=== PATIENT | male | born 1970 | race Caucasian/White ===

== ENCOUNTER 2018-04-27 21:24 | Emergency (ER) | payer MEDICAID ==
[2018-04-27] MEDS ORDERED: 0.9 % SODIUM CHLORIDE 1,000 ML BAG IV ONE (21:50)
[2018-04-27 21:55] LABS: HEMATOCRIT 44.9 % (42.0-52.0); HEMOGLOBIN 15.3 gm/dl (14.0-18.0); MEAN CELL VOLUME 99.1 fl (81-97); MEAN CORPUSCULAR HEMOGLOBIN 33.8 pg (27-33); MEAN CORPUSCULAR HGB CONC 34.1 g/dl (32-36); MEAN PLATELET VOLUME 8.8 fl (7.4-10.4); PLATELET COUNT 365 K/uL (130-400); RED BLOOD COUNT 4.53 M/uL (4.40-5.70); RED CELL DISTRIBUTION WIDTH 13.4 % (11.5-14.5); WHITE BLOOD COUNT W/O DIFF 14.5 K/uL (4.2-12.2)
[2018-04-27 21:57] LABS: ARTERIAL BLOOD GAS PCO2 6.1 mmHg (35-48); ARTERIAL BLOOD GAS pH 7.35 (7.35-7.45)
[2018-04-27 21:58] LABS: ARTERIAL BLOOD GAS HCO3 3.3 mmol/L (18-23)
[2018-04-27] MEDS ORDERED: OLANZAPINE 10 MG VIAL IM ONE (22:01)
[2018-04-27 22:18] LABS: ALB/GLOB RATIO 1.8 (1.1-1.8); ALBUMIN 4.4 g/dL (4.0-5.0); ALKALINE PHOSPHATASE 76 U/L (40-129); ALT/SGPT 20 U/L (<41); AST/SGOT 18 U/L (10.0-50.0); BLOOD UREA NITROGEN 15 mg/dL (6-20); CREATININE 1.2 mg/dL (0.7-1.2); EST GLOMERULAR FILTRATION RATE > 60 mL/min; GLUCOSE,RANDOM 153 mg/dL (74-109); TOTAL PROTEIN 6.8 g/dL (6.6-8.7)
[2018-04-27 22:19] LABS: ANISOCYTOSIS 1+; PLATELET ESTIMATE NORMAL (NORMAL)
[2018-04-27 23:20] LABS: AMPHETAMINE SCREEN URINE NOT DETECTED; BARBITURATE SCREEN URINE DETECTED; BENZODIAZEPINE SCREEN URINE NOT DETECTED; COCAINE SCREEN URINE NOT DETECTED; METHADONE SCREEN URINE NOT DETECTED; METHAMPHETAMINE SCREEN NOT DETECTED; OPIATE SCREEN URINE NOT DETECTED; OXYCODONE SCREEN URINE NOT DETECTED; PHENCYCLIDINE SCREEN URINE NOT DETECTED; PROPOXYPHENE SCREEN URINE NOT DETECTED; THC SCREEN URINE NOT DETECTED; TRICYCLIC ANTIDEPRESSANT SCRN NOT DETECTED
--- NOTE | 2018-04-27 23:20 | Emergency Department Record ---
History of Present Illness - General Chief Complaint: Seizures Stated Complaint: EDELMIRA Time Seen by Provider: 04/27/18 21:30 Source: Family Mode of Arrival: EMS Limitations: No limitations - History of Present Illness Initial Comments: The patient is here due to having a seizure episode at home prior to presenting to the ER. He had 2 seizures per his mother. When the 2nd one occurred the patient's mother called 911. They found the patient seizing and did give the patient 5 of Versed IM. When he presented to the ER he was combative and very agitated and moving his extremities equally. The patient did not wake up and is postictal. He did bite his tongue and wet himself. Complaint: Seizure Onset/Timin -: Minutes(s) Description of Episode: Bladder incontinence, Post-event confusion Duration of Episode: 5 -: Minutes(s) Witnessed: Yes - by other Trauma: No Seizure History: Known seizure disorder Place: Home [facility] Precipitating Event: Stress Associated Symptoms: Denies other symptoms Treatments Prior to Arrival: Airway maneuvers, Benzodiazepines - Related Data Allergies Allergy/AdvReac Type Severity Reaction Status Date / Time Cephalosporins Allergy Severe HIVES Verified 10/25/15 16:08 Travel Screening - Travel/Exposure Within Last 30 Days Have you traveled within the last 30 days?: No - Travel/Exposure Within Last Year Have you traveled outside the [place] 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 He will not talk to us. His GCS appears to be 9.) - Head Head exam: Atraumatic, Normocephalic - Eye Eye exam: Normal appearance, PERRL - ENT Throat exam: Tonsillar erythema, Other (The patient was not protecting his airway.) - Neck Neck exam: Normal inspection, Full ROM. negative: Tenderness - Respiratory Respiratory exam: Normal lung sounds bilaterally. negative: Respiratory distress - Cardiovascular Cardiovascular Exam: Regular rate, Normal rhythm, Normal heart sounds - GI/Abdominal GI/Abdominal exam: Soft, Normal bowel sounds. negative: Tenderness - Extremities Extremities exam: Normal inspection, Full ROM, Normal capillary refill. negative: Tenderness - Neurological Neurological exam: Altered, Other (The patient is very combative and moving all 4 ext equally. He does open his eyes but will not follow commands or answer questions.). negative: Alert - Psychiatric Psychiatric exam: Agitated Course Vital Signs 04/27/18 04/27/18 21:37 22:35 Pulse Rate 156 H Pulse Rate [ 128 H [employer] ] Blood Pressure 158/50 Blood Pressure 208/123 [Right Arm] Pulse Ox 97 - Reevaluation(s) Reevaluation #1: We did attempt to sedate the patient with a small dose of Ativan but the patient never woke up and continued to be combative. He then was intubated for airway control due to the fact he was gasping for air at times with a low O2 sat and for controlling him at CT. He also was not protecting his airway and was very acidotic due to the seizures and combativeness. The intubation was successful on the 2nd attempt with the Glidoscope. He never dropped his O2 saturations lower than 80% during the 2 intubations. At one point after the intubation he did become bradycardic for 15-20 seconds but did respond very quickly to Atropine. His BP did not drop below 100/60 during this episode. 04/27/18 23:45 04/28/18 00:05 04/28/18 00:14 Reevaluation #2: I did discuss the case with Dr. Maynard at the [facility] ICU and he did accept the patient in transfer. 04/27/18 23:47 Reevaluation #3: The patient is doing much better at this time. His HR is 110 and he has a stable BP. The patient's O2 saturations are 100% while intubated. He is on a Versed Drip and is very hemydynamically stable at this time. 04/28/18 00:11 Reevaluation #4: Further hx from Mom. The patient was coughing and gasping at times after the first unwitnessed seizure. It appears he may have aspirated during one of the seizures. 04/28/18 00:12 Medical Decision Making - Data Complexity MDM Data: Labs Ordered and/or Reviewed, X-Ray Ordered and/or Reviewed, EKG Ordered and/or Reviewed - Lab Data Result diagrams: 04/27/18 21:40 04/27/18 21:40 Lab Results 04/27/18 04/27/18 04/27/18 Range/Units 21:40 21:40 21:45 WBC 14.5 H (4.2-12.2) K/uL RBC 4.53 (4.40-5.70) M/uL Hgb 15.3 (14.0-18.0) gm/dl Hct 44.9 (42.0-52.0) % MCV 99.1 H (81-97) fl MCH 33.8 H (27-33) pg MCHC 34.1 (32-36) g/dl RDW 13.4 (11.5-14.5) % Plt Count 365 (130-400) K/uL MPV 8.8 (7.4-10.4) fl Neutrophils % 78.0 (47-80) % Band Neutrophils % 3.0 (0-5) % Eosinophils % Not Reportable Basophils % Not Reportable Lymphocytes 16.0 (16-45) % Monocytes 3.0 (0-9) % Platelet Estimate Normal (NORMAL) Anisocytosis 1+ Puncture Site Not Reportable pCO2 6.1 L* (35-48) mmHg pO2 144.0 H (83-108) mmHg HCO3 3.3 L (18-23) mmol/L Oxyhemoglobin Not Reportable ABG pH 7.35 (7.35-7.45) ABG O2 Saturation Not Reportable ABG Base Excess -23.0 L (-2 - 3) mmol/L Deepak Test Not Reportable Carboxyhemoglobin Not Reportable Methemoglobin Not Reportable Actual Respiration Rate Not Reportable FiO2 Not Reportable Sodium 140 (136-145) mmol/L Potassium 3.7 (3.4-4.5) mmol/L Chloride 99 (98-107) mmol/L Carbon Dioxide 14.0 L (22-29) mmol/L Anion Gap 27.0 H (7-16) BUN 15 (6-20) mg/dL Creatinine 1.2 (0.7-1.2) mg/dL Estimated GFR > 60 mL/min Random Glucose 153 H (74-109) mg/dL Lactic Acid (0.5-2.2) mmol/L Calcium 8.6 (8.6-10.0) mg/dL Total Bilirubin 0.20 (0.2-1.0) mg/dL AST 18 (10.0-50.0) U/L ALT 20 (<41) U/L Alkaline Phosphatase 76 (40-129) U/L Total Protein 6.8 (6.6-8.7) g/dL Albumin 4.4 (4.0-5.0) g/dL Globulin 2.4 (1.4-4.8) gm/dL Albumin/Globulin Ratio 1.8 (1.1-1.8) Phenytoin 9.0 L (10.0-20.0) ug/mL 04/27/18 Range/Units 21:50 WBC (4.2-12.2) K/uL RBC (4.40-5.70) M/uL Hgb (14.0-18.0) gm/dl Hct (42.0-52.0) % MCV (81-97) fl MCH (27-33) pg MCHC (32-36) g/dl RDW (11.5-14.5) % Plt Count (130-400) K/uL MPV (7.4-10.4) fl Neutrophils % (47-80) % Band Neutrophils % (0-5) % Eosinophils % Basophils % Lymphocytes (16-45) % Monocytes (0-9) % Platelet Estimate (NORMAL) Anisocytosis Puncture Site pCO2 (35-48) mmHg pO2 (83-108) mmHg HCO3 (18-23) mmol/L Oxyhemoglobin ABG pH (7.35-7.45) ABG O2 Saturation ABG Base Excess (-2 - 3) mmol/L Deepak Test Carboxyhemoglobin Methemoglobin Actual Respiration Rate FiO2 Sodium (136-145) mmol/L Potassium (3.4-4.5) mmol/L Chloride (98-107) mmol/L Carbon Dioxide (22-29) mmol/L Anion Gap (7-16) BUN (6-20) mg/dL Creatinine (0.7-1.2) mg/dL Estimated GFR mL/min Random Glucose (74-109) mg/dL Lactic Acid 9.2 H (0.5-2.2) mmol/L Calcium (8.6-10.0) mg/dL Total Bilirubin (0.2-1.0) mg/dL AST (10.0-50.0) U/L ALT (<41) U/L Alkaline Phosphatase (40-129) U/L Total Protein (6.6-8.7) g/dL Albumin (4.0-5.0) g/dL Globulin (1.4-4.8) gm/dL Albumin/Globulin Ratio (1.1-1.8) Phenytoin (10.0-20.0) ug/mL - EKG Data -: EKG Interpreted by Me (Sinus tach at 135. Nonspecific ST changes.) - Radiology Data Radiology results: Report reviewed (CXR; Good tube placement with bilateral opacities. Head CT: Neg Cervical CT: Neg for acute changes. Poss abnormal T1 but probably congenital.) Critical Care Time Critical Care Time: Yes Total Critical Care Time: 90 Disposition Forms: Patient Portal Access Quality - Quality Measures Quality Measures: N/A - Blood Pressure Screening View Details: Yes Does Patient Have Any of the Following: No Blood Pressure Classification: Hypertensive Reading Systolic Measurement: 158 Diastolic Measurement: 50 Screening for High Blood Pressure: < First Hypertensive BP, F/U Documented > [ G8950] First Hypertensive Follow-up Interventions: Referral to alternative/primary care provider.
[2018-04-27] MEDS ORDERED: MIDAZOLAM HCL 50 MG in 0.9 % SODIUM CHLORIDE 100ML 100 ML IVPB SCH (23:45)
[2018-04-27] MEDS ORDERED: CLINDAMYCIN 600MG/50ML PREMIX 600 MG/50 ML BAG IVPB ONE (23:55)
[2018-04-28] MEDS ORDERED: FENTANYL PF 100MCG/2ML VIAL IVP ONE (00:02)
[2018-04-28 00:17] LABS: ARTERIAL BLOOD GAS PCO2 45.3 mmHg (35-48); ARTERIAL BLOOD GAS pH 7.27 (7.35-7.45)
[2018-04-28 00:18] LABS: ARTERIAL BLD GAS O2 SATURATION 98.5 % (95-98); ARTERIAL BLOOD GAS BASE EXCESS -5.6 mmol/L (-2 - 3); ARTERIAL BLOOD GAS HCO3 20.1 mmol/L (18-23); CARBOXYHEMOGLOBIN 2.6 % (0-1.5); METHEMOGLOBIN 0.5 % (0.0-1.5); O2 HEMOGLOBIN 95.5 % vol (94-99)
[2018-04-28 00:19] LABS: ALLEN TEST NOT DONE
--- NOTE | 2018-04-28 03:51 | Emergency Department Record ---
History of Present Illness - General Chief Complaint: Seizures Stated Complaint: EDELMIRA Time Seen by Provider: 04/27/18 21:30 Source: Family Mode of Arrival: EMS Limitations: Altered mental status (The patient is moving all 4 ext equally and does open his eyes to voice at times. He will not talk to us. His GCS appears to be 9.) - History of Present Illness Onset/Timin -: Minutes(s) Description of Episode: Bladder incontinence, Post-event confusion Duration of Episode: 5 -: Minutes(s) Witnessed: Yes - by other Trauma: No Seizure History: Known seizure disorder Place: [facility] Precipitating Event: Stress Associated Symptoms: Denies other symptoms Treatments Prior to Arrival: Airway maneuvers, Benzodiazepines - Related Data Allergies Allergy/AdvReac Type Severity Reaction Status Date / Time Cephalosporins Allergy Severe HIVES Verified 10/25/15 16:08 Travel Screening - Travel/Exposure Within Last 30 Days Have you traveled within the last 30 days?: No - Travel/Exposure Within Last Year Have you traveled outside the [place] 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 He will not talk to us. His GCS appears to be 9.) Course Vital Signs 04/27/18 04/27/18 04/27/18 21:37 22:24 22:30 Temperature Pulse Rate 156 H Pulse Rate [ [employer] ] Respiratory Rate Blood Pressure 158/50 Blood Pressure 120/61 121/73 [Right Arm] Pulse Ox 97 04/27/18 04/27/18 04/27/18 22:35 22:40 22:53 Temperature Pulse Rate Pulse Rate [ 128 H 21 L [employer] ] Respiratory Rate Blood Pressure Blood Pressure 208/123 163/91 141/100 [Right Arm] Pulse Ox 04/27/18 04/27/18 04/27/18 22:59 23:09 23:27 Temperature Pulse Rate Pulse Rate [ 144 H 127 H [employer] ] Respiratory 14 Rate Blood Pressure Blood Pressure 163/90 156/92 [Right Arm] Pulse Ox 04/27/18 04/27/18 04/28/18 23:41 23:47 00:00 Temperature 99.4 F Pulse Rate Pulse Rate [ 115 H 135 H [employer] ] Respiratory 14 14 Rate Blood Pressure Blood Pressure 159/90 180/115 [Right Arm] Pulse Ox 04/28/18 04/28/18 04/28/18 00:12 00:15 00:30 Temperature Pulse Rate Pulse Rate [ 111 H 110 H [employer] ] Respiratory 14 14 14 Rate Blood Pressure Blood Pressure 167/92 135/89 [Right Arm] Pulse Ox 100 04/28/18 00:34 Temperature Pulse Rate Pulse Rate [ [employer] ] Respiratory 14 Rate Blood Pressure Blood Pressure [Right Arm] Pulse Ox Procedures - Intubation Date: 04/27/18 Time Out Performed: Yes Sedative: Versed Paralytic: Rocuronium Laryngoscope: Fiberoptic video scope Size: 4 ET Tube Size: 8 ET Tube Uncuffed: No Tube Secured Location: Teeth Tube Placement Confirmation: Confirmation by capnometry, Equal breath sounds bilaterally, No breath sounds over epigastrum, Visualized tube passing through cords Patient Tolerated Procedure: Good Intubation Complications: None Medical Decision Making - Lab Data Result diagrams: 04/27/18 21:40 04/27/18 21:40 Lab Results 04/27/18 04/27/18 04/27/18 Range/Units 21:40 21:40 21:45 WBC 14.5 H (4.2-12.2) K/uL RBC 4.53 (4.40-5.70) M/uL Hgb 15.3 (14.0-18.0) gm/dl Hct 44.9 (42.0-52.0) % MCV 99.1 H (81-97) fl MCH 33.8 H (27-33) pg MCHC 34.1 (32-36) g/dl RDW 13.4 (11.5-14.5) % Plt Count 365 (130-400) K/uL MPV 8.8 (7.4-10.4) fl Neutrophils % 78.0 (47-80) % Band Neutrophils % 3.0 (0-5) % Eosinophils % Not Reportable Basophils % Not Reportable Lymphocytes 16.0 (16-45) % Monocytes 3.0 (0-9) % Platelet Estimate Normal (NORMAL) Anisocytosis 1+ Puncture Site Not Reportable pCO2 6.1 L* (35-48) mmHg pO2 144.0 H (83-108) mmHg HCO3 3.3 L (18-23) mmol/L Oxyhemoglobin Not Reportable ABG pH 7.35 (7.35-7.45) ABG O2 Saturation Not Reportable ABG Base Excess -23.0 L (-2 - 3) mmol/L Deepak Test Not Reportable Carboxyhemoglobin Not Reportable Methemoglobin Not Reportable Actual Respiration Rate Not Reportable FiO2 Not Reportable Sodium 140 (136-145) mmol/L Potassium 3.7 (3.4-4.5) mmol/L Chloride 99 (98-107) mmol/L Carbon Dioxide 14.0 L (22-29) mmol/L Anion Gap 27.0 H (7-16) BUN 15 (6-20) mg/dL Creatinine 1.2 (0.7-1.2) mg/dL Estimated GFR > 60 mL/min Random Glucose 153 H (74-109) mg/dL Lactic Acid (0.5-2.2) mmol/L Calcium 8.6 (8.6-10.0) mg/dL Total Bilirubin 0.20 (0.2-1.0) mg/dL AST 18 (10.0-50.0) U/L ALT 20 (<41) U/L Alkaline Phosphatase 76 (40-129) U/L Total Protein 6.8 (6.6-8.7) g/dL Albumin 4.4 (4.0-5.0) g/dL Globulin 2.4 (1.4-4.8) gm/dL Albumin/Globulin Ratio 1.8 (1.1-1.8) Urine Opiates Screen Ur Oxycodone Screen Urine Methadone Screen Ur Propoxyphene Screen Ur Barbituates Screen Phenytoin 9.0 L (10.0-20.0) ug/mL Ur Tricyclics Screen Ur Phencyclidine Scrn Ur Amphetamine Screen U Methamphetamines Scrn U Benzodiazepines Scrn Urine Cocaine Screen Urine Cannabis Screen 04/27/18 04/27/18 04/28/18 Range/Units 21:50 Unknown 00:10 WBC (4.2-12.2) K/uL RBC (4.40-5.70) M/uL Hgb (14.0-18.0) gm/dl Hct (42.0-52.0) % MCV (81-97) fl MCH (27-33) pg MCHC (32-36) g/dl RDW (11.5-14.5) % Plt Count (130-400) K/uL MPV (7.4-10.4) fl Neutrophils % (47-80) % Band Neutrophils % (0-5) % Eosinophils % Basophils % Lymphocytes (16-45) % Monocytes (0-9) % Platelet Estimate (NORMAL) Anisocytosis Puncture Site Right wrist pCO2 45.3 (35-48) mmHg pO2 115.0 H (83-108) mmHg HCO3 20.1 (18-23) mmol/L Oxyhemoglobin 95.5 ABG pH 7.27 L (7.35-7.45) ABG O2 Saturation 98.5 H ABG Base Excess -5.6 L (-2 - 3) mmol/L Deepak Test Not done Carboxyhemoglobin 2.6 H Methemoglobin 0.5 Actual Respiration Rate 14.0 FiO2 60.0 Sodium (136-145) mmol/L Potassium (3.4-4.5) mmol/L Chloride (98-107) mmol/L Carbon Dioxide (22-29) mmol/L Anion Gap (7-16) BUN (6-20) mg/dL Creatinine (0.7-1.2) mg/dL Estimated GFR mL/min Random Glucose (74-109) mg/dL Lactic Acid 9.2 H (0.5-2.2) mmol/L Calcium (8.6-10.0) mg/dL Total Bilirubin (0.2-1.0) mg/dL AST (10.0-50.0) U/L ALT (<41) U/L Alkaline Phosphatase (40-129) U/L Total Protein (6.6-8.7) g/dL Albumin (4.0-5.0) g/dL Globulin (1.4-4.8) gm/dL Albumin/Globulin Ratio (1.1-1.8) Urine Opiates Screen Not detected Ur Oxycodone Screen Not detected Urine Methadone Screen Not detected Ur Propoxyphene Screen Not detected Ur Barbituates Screen Detected Phenytoin (10.0-20.0) ug/mL Ur Tricyclics Screen Not detected Ur Phencyclidine Scrn Not detected Ur Amphetamine Screen Not detected U Methamphetamines Scrn Not detected U Benzodiazepines Scrn Not detected Urine Cocaine Screen Not detected Urine Cannabis Screen Not detected Disposition Forms: Patient Portal Access Quality - Quality Measures Quality Measures: N/A - Blood Pressure Screening View Details: Yes Does Patient Have Any of the Following: No Blood Pressure Classification: Hypertensive Reading Systolic Measurement: 158 Diastolic Measurement: 50 Screening for High Blood Pressure: < First Hypertensive BP, F/U Documented > [ G8950] First Hypertensive Follow-up Interventions: Referral to alternative/primary care provider.
--- NOTE | 2018-04-29 13:24 | RADIOLOGY REPORT ---
EXAM: CHEST 1 VIEW HISTORY: PATIENT HAS TUBE PLACEMENT. TECHNIQUE: Three AP views of the chest are provided along with a comparison study dated 10/25/2015. FINDINGS: The cardiomediastinal silhouette is within normal limits for size and contour. Shaye appear unremarkable. Multiple patchy alveolar infiltrates are identified within the bilateral lung caldwell suggesting pneumonia. No pneumothorax is noted. Final AP portable view demonstrates an endotracheal tube. The distal tip of the endotracheal tube is identified approximately 3.2 cm above the level of the kristin. IMPRESSION: 1. MULTIFOCAL PATCHY INFILTRATES ARE IDENTIFIED SUGGESTING PNEUMONIA. 2. AN ENDOTRACHEAL TUBE TIP IS NOTED, DESCRIBED. 3. FOLLOW-UP PA AND LATERAL VIEW OF THE CHEST CAN BE OBTAINED UNTIL RESOLUTION OF FINDINGS. JOB NUMBER: [id number] MTDD
--- NOTE | 2018-04-29 13:29 | CT SCAN REPORT ---
EXAM: CT SCAN HEAD WO CONTRAST HISTORY: PATIENT HAS MULTIPLE SEIZURES. TECHNIQUE: Serial axial CT scan of the head was performed at 2.5 mm intervals from the base of the skull to the apex without the use of intravenous contrast. Sagittal and coronal reconstructions are provided. COMPARISON: Comparison CT scan of the head dated 05/05/2014 is provided. FINDINGS: The ventricles, cisterns, sulci appear within normal limits for size , shape, and attenuation. There is no mass or mass effect. The delgadillo and white differentiation is within normal limits. There is no CT evidence of intra or extraaxial fluid collection to suggest bleeding. Bone windows demonstrate no CT evidence of a fracture or dislocation of the skull. IMPRESSION: STABLE CT APPEARANCE OF THE BRAIN WITH RESPECT TO THE PRIOR EXAMINATION. JOB NUMBER: [id number] MTDD
--- NOTE | 2018-04-29 13:37 | CT SCAN REPORT ---
EXAM: CT SCAN CERVICAL SPINE WO CONTRAST HISTORY: PATIENT HAS A HISTORY OF MULTIPLE SEIZURES. TECHNIQUE: Serial axial CT scan of the cervical spine was performed at 2.5 mm intervals from the base of the skull to the thoracic inlet without the use of intravenous contrast. Sagittal and coronal reconstructions are provided. COMPARISON: No comparison CT's are available. FINDINGS: The vertebral body height, contour, AP alignment of the cervical spine is within normal limits. There is moderate disc space height loss with anterior vertebral body osteophyte formation and endplate sclerosis at the C6- C7 disc space level. There is significant central compression deformity of the C7 vertebral body. Age and etiology is uncertain. If there is further clinical concern, then an MRI of the cervical spine can be obtained for further evaluation. There is no CT evidence of a fracture or dislocation of the cervical spine. The prevertebral soft tissue is unremarkable. The parapharyngeal fat is unremarkable. The bilateral visualized parotid glands, submandibular glands, thyroid gland are unremarkable. No cervical lymphadenopathy is noted. An endotracheal tube is identified following the course of the trachea. Lung windows demonstrate nodular infiltrates within the bilateral upper lobes. These findings may represent pneumonia. Follow-up PA and lateral view of the chest can be obtained until resolution of findings. IMPRESSION: 1. DEGENERATIVE DISC DISEASE OF THE CERVICAL SPINE IS NOTED WITHOUT CT EVIDENCE OF AN ACUTE FRACTURE OR DISLOCATION OF THE CERVICAL SPINE. 2. SIGNIFICANT ANTERIOR AND CENTRAL COMPRESSION DEFORMITY OF THE T1 VERTEBRAL BODY. AGE AND ETIOLOGY IS UNCERTAIN. IF THERE IS FURTHER CLINICAL CONCERN, THEN AN MRI OF THE CERVICAL SPINE CAN BE OBTAINED FOR FURTHER EVALUATION. 3. NODULAR INFILTRATES ARE NOTED WITHIN THE BILATERAL UPPER LOBES, WHICH MAY BE THE RESULT OF A PNEUMONIA. FOLLOW-UP PA AND LATERAL VIEW OF THE CHEST CAN BE OBTAINED UNTIL RESOLUTION OF FINDINGS. JOB NUMBER: [id number] [facility]
--- NOTE | 2018-04-30 07:08 | Emergency Department Record ---
History of Present Illness - General Chief Complaint: Seizures Stated Complaint: EDELMIRA Time Seen by Provider: 04/27/18 21:30 Source: Family Mode of Arrival: EMS Limitations: Altered mental status (The patient is moving all 4 ext equally and does open his eyes to voice at times. He will not talk to us. His GCS appears to be 9.) - History of Present Illness Onset/Timin -: Minutes(s) Description of Episode: Bladder incontinence, Post-event confusion Duration of Episode: 5 -: Minutes(s) Witnessed: Yes - by other Trauma: No Seizure History: Known seizure disorder Place: Home Possible Precipitating Event: Stress Associated Symptoms: Denies other symptoms Treatments Prior to Arrival: Airway maneuvers, Benzodiazepines - Related Data Allergies Allergy/AdvReac Type Severity Reaction Status Date / Time Cephalosporins Allergy Severe HIVES Verified 10/25/15 16:08 Travel Screening - Travel/Exposure Within Last 30 Days Have you traveled within the last 30 days?: No - Travel/Exposure Within Last Year Have you traveled outside the [place] 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 He will not talk to us. His GCS appears to be 9.) Course Vital Signs 04/27/18 04/27/18 04/27/18 21:37 22:24 22:30 Temperature Pulse Rate 156 H Pulse Rate [ Brattice Builder ] Respiratory Rate Blood Pressure 158/50 Blood Pressure 120/61 121/73 [Right Arm] Pulse Ox 97 04/27/18 04/27/18 04/27/18 22:35 22:40 22:53 Temperature Pulse Rate Pulse Rate [ 128 H 21 L Brattice Builder ] Respiratory Rate Blood Pressure Blood Pressure 208/123 163/91 141/100 [Right Arm] Pulse Ox 04/27/18 04/27/18 04/27/18 22:59 23:09 23:27 Temperature Pulse Rate Pulse Rate [ 144 H 127 H Brattice Builder ] Respiratory 14 Rate Blood Pressure Blood Pressure 163/90 156/92 [Right Arm] Pulse Ox 04/27/18 04/27/18 04/28/18 23:41 23:47 00:00 Temperature 99.4 F Pulse Rate Pulse Rate [ 115 H 135 H Brattice Builder ] Respiratory 14 14 Rate Blood Pressure Blood Pressure 159/90 180/115 [Right Arm] Pulse Ox 04/28/18 04/28/18 04/28/18 00:12 00:15 00:30 Temperature Pulse Rate Pulse Rate [ 111 H 110 H Brattice Builder ] Respiratory 14 14 14 Rate Blood Pressure Blood Pressure 167/92 135/89 [Right Arm] Pulse Ox 100 04/28/18 00:34 Temperature Pulse Rate Pulse Rate [ Brattice Builder ] Respiratory 14 Rate Blood Pressure Blood Pressure [Right Arm] Pulse Ox Medical Decision Making - Lab Data Result diagrams: 04/27/18 21:40 04/27/18 21:40 Lab Results 04/27/18 04/27/18 04/27/18 Range/Units 21:40 21:40 21:45 WBC 14.5 H (4.2-12.2) K/uL RBC 4.53 (4.40-5.70) M/uL Hgb 15.3 (14.0-18.0) gm/dl Hct 44.9 (42.0-52.0) % MCV 99.1 H (81-97) fl MCH 33.8 H (27-33) pg MCHC 34.1 (32-36) g/dl RDW 13.4 (11.5-14.5) % Plt Count 365 (130-400) K/uL MPV 8.8 (7.4-10.4) fl Neutrophils % 78.0 (47-80) % Band Neutrophils % 3.0 (0-5) % Eosinophils % Not Reportable Basophils % Not Reportable Lymphocytes 16.0 (16-45) % Monocytes 3.0 (0-9) % Platelet Estimate Normal (NORMAL) Anisocytosis 1+ Puncture Site Not Reportable pCO2 6.1 L* (35-48) mmHg pO2 144.0 H (83-108) mmHg HCO3 3.3 L (18-23) mmol/L Oxyhemoglobin Not Reportable ABG pH 7.35 (7.35-7.45) ABG O2 Saturation Not Reportable ABG Base Excess -23.0 L (-2 - 3) mmol/L Deepak Test Not Reportable Carboxyhemoglobin Not Reportable Methemoglobin Not Reportable Actual Respiration Rate Not Reportable FiO2 Not Reportable Sodium 140 (136-145) mmol/L Potassium 3.7 (3.4-4.5) mmol/L Chloride 99 (98-107) mmol/L Carbon Dioxide 14.0 L (22-29) mmol/L Anion Gap 27.0 H (7-16) BUN 15 (6-20) mg/dL Creatinine 1.2 (0.7-1.2) mg/dL Estimated GFR > 60 mL/min Random Glucose 153 H (74-109) mg/dL Lactic Acid (0.5-2.2) mmol/L Calcium 8.6 (8.6-10.0) mg/dL Total Bilirubin 0.20 (0.2-1.0) mg/dL AST 18 (10.0-50.0) U/L ALT 20 (<41) U/L Alkaline Phosphatase 76 (40-129) U/L Total Protein 6.8 (6.6-8.7) g/dL Albumin 4.4 (4.0-5.0) g/dL Globulin 2.4 (1.4-4.8) gm/dL Albumin/Globulin Ratio 1.8 (1.1-1.8) Urine Opiates Screen Ur Oxycodone Screen Urine Methadone Screen Ur Propoxyphene Screen Ur Barbituates Screen Phenytoin 9.0 L (10.0-20.0) ug/mL Ur Tricyclics Screen Ur Phencyclidine Scrn Ur Amphetamine Screen U Methamphetamines Scrn U Benzodiazepines Scrn Urine Cocaine Screen Urine Cannabis Screen 04/27/18 04/27/18 04/28/18 Range/Units 21:50 Unknown 00:10 WBC (4.2-12.2) K/uL RBC (4.40-5.70) M/uL Hgb (14.0-18.0) gm/dl Hct (42.0-52.0) % MCV (81-97) fl MCH (27-33) pg MCHC (32-36) g/dl RDW (11.5-14.5) % Plt Count (130-400) K/uL MPV (7.4-10.4) fl Neutrophils % (47-80) % Band Neutrophils % (0-5) % Eosinophils % Basophils % Lymphocytes (16-45) % Monocytes (0-9) % Platelet Estimate (NORMAL) Anisocytosis Puncture Site Right wrist pCO2 45.3 (35-48) mmHg pO2 115.0 H (83-108) mmHg HCO3 20.1 (18-23) mmol/L Oxyhemoglobin 95.5 ABG pH 7.27 L (7.35-7.45) ABG O2 Saturation 98.5 H ABG Base Excess -5.6 L (-2 - 3) mmol/L Deepak Test Not done Carboxyhemoglobin 2.6 H Methemoglobin 0.5 Actual Respiration Rate 14.0 FiO2 60.0 Sodium (136-145) mmol/L Potassium (3.4-4.5) mmol/L Chloride (98-107) mmol/L Carbon Dioxide (22-29) mmol/L Anion Gap (7-16) BUN (6-20) mg/dL Creatinine (0.7-1.2) mg/dL Estimated GFR mL/min Random Glucose (74-109) mg/dL Lactic Acid 9.2 H (0.5-2.2) mmol/L Calcium (8.6-10.0) mg/dL Total Bilirubin (0.2-1.0) mg/dL AST (10.0-50.0) U/L ALT (<41) U/L Alkaline Phosphatase (40-129) U/L Total Protein (6.6-8.7) g/dL Albumin (4.0-5.0) g/dL Globulin (1.4-4.8) gm/dL Albumin/Globulin Ratio (1.1-1.8) Urine Opiates Screen Not detected Ur Oxycodone Screen Not detected Urine Methadone Screen Not detected Ur Propoxyphene Screen Not detected Ur Barbituates Screen Detected Phenytoin (10.0-20.0) ug/mL Ur Tricyclics Screen Not detected Ur Phencyclidine Scrn Not detected Ur Amphetamine Screen Not detected U Methamphetamines Scrn Not detected U Benzodiazepines Scrn Not detected Urine Cocaine Screen Not detected Urine Cannabis Screen Not detected Disposition Disposition: Transfer Clinical Impression: Intractable seizures Disposition: Acute Care Hospital Transfer Transfer To: [facility] Reason For Transfer: ICU Accepting Physician: Aliyah Time Discussed w/Accepting Physician: :07 Condition: (2) Stable Forms: Patient Portal Access Time of Disposition: 07:08 Quality - Quality Measures Quality Measures: N/A - Blood Pressure Screening View Details: Yes Does Patient Have Any of the Following: No Blood Pressure Classification: Hypertensive Reading Systolic Measurement: 158 Diastolic Measurement: 50 Screening for High Blood Pressure: < First Hypertensive BP, F/U Documented > [ [id number]] First Hypertensive Follow-up Interventions: Referral to alternative/primary care provider.
== END 2018-04-28 00:50 | disposition short-term general hospital (02) ==
LOC: ER 21:24
DX: G40.919 Epilepsy, unspecified, intractable, without status epilepticus (principal); R41.82 Altered mental status, unspecified; R05 Cough; F17.210 Nicotine dependence, cigarettes, uncomplicated; Z87.820 Personal history of traumatic brain injury
CPT/HCPCS: 31500; 36600; 70450; 71045; 72125; 80053; 80185; 80305; 82375; 82803; 83605; 85027; 93005; 93010; 94002; 96365; 96366; 96368; 96372; 96375; 96376; 99291; 99292